=== PATIENT | female | born 1985 | race Caucasian/White ===

== ENCOUNTER 2016-09-08 13:52 | Emergency (ER) | payer OTHER ==
[2016-09-08 14:36] LABS: ABSOLUTE NEUTROPHIL COUNT 11.4 K/mm3 (1.8-7.7); BASO # 0.1 K/mm3 (0.0-0.2); BASO % 0.4 % (0.2-1.0); EOS # 0.1 (0.0-0.5); EOS % 0.6 % (0.9-2.9); HEMATOCRIT 41.4 % (37.0-47.0); HEMOGLOBIN 13.7 gm/l (12.0-16.0); IMM NEUT # 0.1 K/mm3 (0-0.2); IMM NEUT% 0.5 % (0-1); LYMPH # 2.1 (1.0-4.8); LYMPH % 14.8 % (15-45); MEAN CORPUSCULAR HEMOGLOBIN 29.8 pg (27.0-31.0); MEAN CORPUSCULAR HGB CONC 33.1 g/dl (33.0-37.0); MEAN PLATELET VOLUME 10.6 fl (7.4-10.4); MONO # 0.7 (0.0-0.8); MONO % 5.1 % (4-12); NEUT % 78.6 % (43-75); PLATELET COUNT 222 K/mm3 (130-400); RED CELL DISTRIBUTION WIDTH 12.2 % (11.5-14.5)
[2016-09-08] MEDS ORDERED: ACETAMINOPHEN 500 MG TABLET ONE (16:13)
--- NOTE | 2016-09-08 16:25 | US ---
OB COMP <14 WKS, OB TRANSVAGINAL CLINICAL HISTORY: 31 years old. Gestational age 8 weeks 4 days. Increased vaginal bleeding. LMP 07/10/2016. EDC 04/16/2017. COMPARISON: 09/04/2016 TECHNIQUE: Transabdominal and transvaginal. FINDINGS: Uterus: No gestational sac. Endometrium: In the lower uterine segment, focal thickening of the endometrium and ovaries 17 mm length. Embryo: None Yolks sac: None Right ovary: 4.6 x 1.9 x 3.8 cm. Left ovary: 3.2 x 1.8 x 2.2 cm Impression: Ultrasound findings evidence of spontaneous in progress. The results were discussed with Gautam Lares M.D. 09/08/2016 at 16:20
[2016-09-08] MEDS ORDERED: DICYCLOMINE HCL 10 MG/ML 2ML AMP IM ONE (16:30)
[2016-09-08 16:35] LABS: SPECIFIC GRAVITY 1.015 (1.001-1.030); URINE BILIRUBIN NEGATIVE (NEGATIVE); URINE BLOOD 4+ (NEGATIVE); URINE GLUCOSE (UA) NEGATIVE (NEGATIVE); URINE LEUKOCYTE ESTERASE NEGATIVE (NEGATIVE); URINE NITRITE NEGATIVE (NEGATIVE); URINE PROTEIN NEGATIVE (NEGATIVE); URINE UROBILINOGEN NORMAL (0-1 mg/dl)
[2016-09-08 16:38] LABS: URINE APPEARANCE SL CLOUDY; URINE COLOR YELLOW
[2016-09-08 16:40] LABS: URINE BACTERIA RARE; URINE EPITHELIAL CELLS 0-3 /hpf; URINE RBC 0-3 /hpf; URINE WBC 0-1 /hpf
[2016-09-08 17:12] LABS: ALB/GLOB RATIO 1.8 (>1.0); ALBUMIN 4.4 gm/dL (3.5-5.7); CALCIUM 9.4 mg/dL (8.6-10.3)
[2016-09-09 15:14] LABS: CHLAMYDIA BD Negative (Negative); N.GONORRHOEAE BD Negative (Negative); SOURCE Urine (())
--- NOTE | 2016-09-11 13:30 | SURGPATH ---
[facility] [address] [place] [id number] Patient Name: HEBER العراقي MR#: [id number] : 1985 Gender: F Specimen #: [id number] Collected: 09/08/2016 Received: 09/09/2016 Reported: 09/11/2016 Submitting Phys: SHYAM GRANDE I Copy To Phys: [facility] ARABELLA VILMA Z Addendum Present Clinical History / Pre-Operative Diagnosis: A KARYOTYPE Specimen Source / Surgical Procedure Performed: PRODUCTS OF CONCEPTION (5-8 WEEKS) HIGH PRIORITY DIAGNOSIS. REQUIRES CLINICAL ATTENTION Interpretation: SPECIMEN LABELED "PRODUCTS OF CONCEPTION": - INFLAMED AND NECROTIC DECIDUA - NEGATIVE FOR CHORIONIC VILLI - PRODUCTS OF CONCEPTION NOT CONFIRMED Electronically Signed Out Reyes Dykes M.D. Addendum Date Reported: 09/24/2016 Signed Out Addendum Diagnosis THIS CASE WAS SENT FOR ADDITIONAL TESTING: Chromosome Results: None KARYOTYPE RESULTS: See below IMPRESSIONS AND RECOMMENDATIONS: Study canceled all tissue received was maternal decidua. Rendering Diagnostician: Hyun Angeles PhD, AB, FAC Clinical Outside B2B Sales Testing Performed at: [facility]; [employer]; [place] [id number] Please see complete report under separate cover. slc/09/24/2016 Electronically Signed Out Reyes Dykes M.D. Gross Description: The specimen is received fresh labeled with the patient's name and "POC". An irregular fragment of hemorrhagic membranous tissue is 8.5 x 3.0 x 0.7 cm. There is no grossly recognizable or placental tissue. Hospice Registered Nurse tissue is submitted in RPMI for chromosome analysis. The specimen is entirely submitted for routine histologic examination following formalin fixation in cassettes A-D. Lorraine Cornejo Microscopic Description: Sections show necrotic and acutely inflamed decidua. Extensive level sectioning of the entire specimen does not reveal chorionic villi or other products of conception. Results were discussed with Dr. Moises Grande on 09/11/16 via telephone. 1: [id number] O02.89
== END 2016-09-08 17:35 | disposition home or self-care (01) ==
LOC: ED 13:52
DX: O03.9 Complete or unspecified spontaneous abortion without complication (principal); O09.291 Supervision of pregnancy with other poor reproductive or obstetric history, first trimester; O26.21 Pregnancy care for patient with recurrent pregnancy loss, first trimester; Z3A.01 Less than 8 weeks gestation of pregnancy
CPT/HCPCS: 87491; 87591; 84702; 85025; 80053; 81001; 87210; 76817; 76801; 99284; 96372; 96360; 96361; 36415; 99283; A9270